=== PATIENT | male | born 1995 | race Caucasian/White ===

== ENCOUNTER 2022-04-11 12:35 | Emergency (ER) | payer OTHER ==
[~2022-04-11] VITALS: Ht 177.8 cm; Wt 76.7 kg
--- NOTE | 2022-04-11 12:46 | NUR ---
[facility] IN [facility] FOR DRUG USE. PER EMS FRIEND CALLED ADMINISTERED 2 SPRAYS OF NARCAN AND CALLED 911 EMERGENCY. BG [employer]. TO ER BED 12. PT CHANGED TO GOWN AND ATTACHED TO MONITOR.
[2022-04-11] MEDS ORDERED: NALOXONE PREFILLED SYRINGE 2 MG/2 ML SYRINGE ONE (12:53)
[2022-04-11] MEDS: NALOXONE HCL 0.4 MG/ML AMPUL IV ONE (13:00)
--- NOTE | 2022-04-11 13:00 | NUR ---
DR HOLM AT BEDSIDE FOR EVAL
--- NOTE | 2022-04-11 13:16 | NUR ---
IV LINE ESTABLISHED ON LAC #[id number].
--- NOTE | 2022-04-11 13:18 | NUR ---
URINE SAMPLE COLLECTED.
[2022-04-11] MEDS: ALBUTEROL SULFATE 8 GM HFA.AER.AD IH ONE (14:00)
--- NOTE | 2022-04-11 16:21 | NUR ---
The patient is alert and oriented x4. In room air and denies SOB. Respiration regular and unlabored. Denies pain. IV removed. Catheter intact and site benign. Pressure and 4x4 applied to site. No bleeding noted.Patient discharged to home in stable condition. Written and verbal after care instructions given. Patient verbalizes understanding of instruction.
[2022-04-11 16:22] VITALS: BP 122/70
== END 2022-04-11 16:22 | disposition home or self-care (01) ==
LOC: ER 12:37
DX: J45.909 Unspecified asthma, uncomplicated (principal); R06.00 Dyspnea, unspecified
CPT/HCPCS: 99283; 96374; J2310